=== PATIENT | female | born 1940 | race Caucasian/White ===

== ENCOUNTER 2022-06-16 23:50 | Emergency (ER) | payer BC, OTHER ==
[~2022-06-16] VITALS: Ht 170.2 cm; Wt 90.9 kg
[2022-06-17 00:38] LABS: Basophils # (auto) 0.1 10 ^3/uL (0-0.2); Basophils % (auto) 1.4 % (0.0-2.0); Eosinophils # (auto) 0.2 10 ^3/uL (0-0.8); Eosinophils % (auto) 3.8 % (0.0-7.0); Hematocrit 39.6 % (36.0-46.0); Hemoglobin 12.6 g/dL (12.2-16.2); Lymphocytes # (auto) 2.1 10 ^3/uL (0.4-5.4); Lymphocytes % (auto) 32.4 % (10.0-50.0); Mean Corpuscular Hemoglobin 30.7 pg (28.0-32.0); Mean Corpuscular Hgb Conc. 31.8 g/dL (32.0-36.0); Mean Corpuscular Volume 96.5 fL (80.0-100.0); Monocytes # (auto) 0.6 10 ^3/uL (0-1.3); Neutrophils # (auto) 3.5 10 ^3/uL (1.6-8.6); Neutrophils % (auto) 53.4 % (37.0-80.0); Red Blood Cells 4.11 10^6/uL (4.0-5.20); Red Cell Distribution Width 14.3 % (11.8-14.3); White Blood Cell 6.5 10^3/uL (4.4-10.8)
[2022-06-17 00:53] LABS: INR 0.97 (0.9-1.15); Partial Thromboplastin Time 24.5 sec (24.6-33.4)
[2022-06-17 00:58] LABS: Albumin 3.9 g/dL (3.4-5.0); BUN/Creatinine Ratio 33.9; Calcium 10.7 mg/dL (8.5-10.1); Magnesium 2.3 mg/dL (1.6-2.6); Potassium 4.1 mmol/L (3.5-5.1)
[2022-06-17 01:01] LABS: Bilirubin, Total 0.3 mg/dL (0.2-1.0); Total Protein 7.5 g/dL (6.4-8.2)
[2022-06-17 02:01] VITALS: BP 147/71
== END 2022-06-17 03:07 | disposition home or self-care (01) ==
LOC: EDBD 23:50 → ER 23:50
DX: I48.91 Unspecified atrial fibrillation (principal); I10 Essential (primary) hypertension
CPT/HCPCS: 36415; 71045; 80053; 83735; 83880; 84484; 85025; 85610; 85730; 93005

== ENCOUNTER 2023-08-11 21:42 | Observation (INO) | payer OTHER ==
[~2023-08-11] VITALS: Ht 167.6 cm; Wt 93.2 kg
[2023-08-11] MEDS: dilTIAZem 25 MG/5 ML VIAL IV ONE (22:00)
[2023-08-11 22:22] LABS: Basophils # (auto) 0 10 ^3/uL (0-0.2); Basophils % (auto) 0.4 % (0.0-2.0); Eosinophils # (auto) 0.1 10 ^3/uL (0-0.8); Hematocrit 40.6 % (36.0-46.0); Hemoglobin 13.2 g/dL (12.2-16.2); Lymphocytes # (auto) 2.1 10 ^3/uL (0.4-5.4); Lymphocytes % (auto) 22.1 % (10.0-50.0); Mean Corpuscular Hemoglobin 31.9 pg (28.0-32.0); Mean Corpuscular Hgb Conc. 32.4 g/dL (32.0-36.0); Mean Corpuscular Volume 98.4 fL (80.0-100.0); Monocytes # (auto) 1.7 10 ^3/uL (0-1.3); Monocytes % (auto) 17.7 % (0.0-12.0); Neutrophils # (auto) 5.5 10 ^3/uL (1.6-8.6); Neutrophils % (auto) 58.8 % (37.0-80.0); Red Blood Cells 4.13 10^6/uL (4.0-5.20); Red Cell Distribution Width 13.7 % (11.8-14.3); White Blood Cell 9.4 10^3/uL (4.4-10.8)
[2023-08-11 22:30] VITALS: PULSE 142; RESP 23; O2SAT 96
[2023-08-11 22:38] LABS: Alanine Aminotransferase 28 U/L (7-40); Albumin 4.2 g/dL (3.2-4.8); Alkaline Phosphatase 82 U/L (46-116); Anion Gap 8 (5-15); Aspartate Aminotransferase 27 U/L (13-40); BUN/Creatinine Ratio 31.2 (10.0-20.0); Blood Urea Nitrogen 54 mg/dL (9-23); Carbon Dioxide 24 mmol/L (20-30); Chloride 104 mmol/L (98-107); Glucose 162 mg/dL (74-106); Potassium 3.3 mmol/L (3.5-5.1); Sodium 136 mmol/L (136-145)
[2023-08-11 22:39] LABS: Bilirubin, Total 0.3 mg/dL (0.2-1.0); Total Protein 6.5 g/dL (5.7-8.2)
[2023-08-11 22:48] LABS: INR 1.06 (0.9-1.15); Partial Thromboplastin Time 26.9 SEC (24.5-34.5); Prothrombin Time 11.1 sec (9.3-11.8)
[2023-08-11 22:51] LABS: Urine Bacteria NONE SEEN /hpf (None Seen); Urine Blood Negative /uL (Negative); Urine Clarity Clear (Clear); Urine Color Yellow (Yellow); Urine Hyaline Cast FEW /lpf (0 - 2); Urine Protein, UAD TRACE (Negative); Urine Specific Gravity 1.017 (1.001-1.035); Urine Urobilinogen Normal (Negative); Urine WBC 6 /hpf (0 - 5); Urine pH 5.5 (5.0-8.0)
[2023-08-12] VITALS (7 sets, daily range): BP systolic 101–115; BP diastolic 53–73; PULSE 65–95; RESP 16–19; TEMP 97.8–98.8; O2SAT 96–100
[2023-08-12] MEDS: dilTIAZem 125mg/125ml BAG KIT 125 ML IV ONE (01:03)
[2023-08-12] MEDS: cefTRIAXone 1GM/50ML D5W 50 ML IV ONE (01:11)
[2023-08-12] MEDS: POTASSIUM CHL 20 Meq TABLET PO ONE (01:11)
[2023-08-12] MEDS: dilTIAZem 25 MG/5 ML VIAL IV ONE (01:11)
[2023-08-12] MEDS ORDERED: dilTIAZem 125mg/125ml BAG KIT 100 ML IV SCH (02:15)
[2023-08-12] MEDS ORDERED: NITROGLYCERIN 0.4 MG SL TAB SL PRN (02:30)
[2023-08-12] MEDS ORDERED: hydrALAZINE HCL 20 MG/ML VL IV PRN (02:30)
[2023-08-12] MEDS ORDERED: MORPHINE SULFATE INJ 2 MG/ml SYRG IV PRN (02:30)
[2023-08-12] MEDS ORDERED: DEXTROSE (50%) 50ML SYRG IV PRN (02:30)
[2023-08-12] MEDS: NITROGLYCERIN 0.4 MG SL TAB SL ONE (02:31)
[2023-08-12] MEDS: AMIODARONE BOLUS KIT 100 ML IV ONE (03:00)
[2023-08-12] MEDS: SODIUM CHLORIDE 0.9% 1,000 ML IV SCH (03:00)
[2023-08-12] MEDS: AMIODARONE 450mg/250ml AE 250 ML IV SCH ×2 (04:12→08:11)
[2023-08-12] MEDS: ENOXAPARIN SOD 100 MG/1 ML SYRINGE SC SCH (04:13)
[2023-08-12 06:04] LABS: Basophils # (auto) 0.1 10 ^3/uL (0-0.2); Basophils % (auto) 0.7 % (0.0-2.0); Eosinophils # (auto) 0.1 10 ^3/uL (0-0.8); Hematocrit 38.8 % (36.0-46.0); Hemoglobin 12.6 g/dL (12.2-16.2); Lymphocytes # (auto) 1.2 10 ^3/uL (0.4-5.4); Lymphocytes % (auto) 14.6 % (10.0-50.0); Mean Corpuscular Hemoglobin 32.4 pg (28.0-32.0); Mean Corpuscular Hgb Conc. 32.5 g/dL (32.0-36.0); Mean Corpuscular Volume 99.9 fL (80.0-100.0); Monocytes # (auto) 1.5 10 ^3/uL (0-1.3); Monocytes % (auto) 17.7 % (0.0-12.0); Neutrophils # (auto) 5.5 10 ^3/uL (1.6-8.6); Red Blood Cells 3.89 10^6/uL (4.0-5.20); White Blood Cell 8.3 10^3/uL (4.4-10.8)
[2023-08-12 06:19] LABS: Chloride 106 mmol/L (98-107); Potassium 4.2 mmol/L (3.5-5.1); Sodium 134 mmol/L (136-145)
[2023-08-12 06:20] LABS: Anion Gap 8 (5-15); Calcium 9.4 mg/dL (8.7-10.4); Carbon Dioxide 20 mmol/L (20-30)
[2023-08-12 06:25] LABS: BUN/Creatinine Ratio 46.7 (10.0-20.0); Blood Urea Nitrogen 57 mg/dL (9-23); Glucose 187 mg/dL (74-106)
[2023-08-12] MEDS: METOPROLOL TARTRATE 25 MG TAB PO ONE (07:30)
[2023-08-12] MEDS: SODIUM CHLORIDE 0.9% 500 ML IV ONE (07:30)
[2023-08-12] MEDS: ACCU-CHEK COMFORT CURVE STRIP VI SCH (08:06)
[2023-08-12] MEDS: ASPirin-EC 81 mg tab PO SCH (08:06)
[2023-08-12] MEDS: InsuLIN REG 1unit/0.01ml Soln (100units/ml) SC SCH (08:07)
[2023-08-12] MEDS: LOPERAMIDE HCL 2 MG CAP/TAB PO PRN (11:22)
[2023-08-12] MEDS ORDERED: AMIO200T33 PO (12:51)
[2023-08-12] MEDS ORDERED: APIX5TAB PO (13:12)
[2023-08-12] MEDS: cefTRIAXone 1GM/50ML D5W 50 ML IV SCH (13:41)
[2023-08-12] MEDS: AMIODARONE HCL 200 MG TAB PO SCH (15:32)
[2023-08-12] MEDS ORDERED: cefTRIAXone 1GM/50ML D5W 50 ML IV SCH (21:00)
[2023-08-12] MEDS ORDERED: ATORVASTATIN 20 MG TAB PO SCH (22:00)
== END 2023-08-12 19:28 | disposition home or self-care (01) ==
LOC: ER 21:42 → EDBD 21:42 → TELE 08-12 02:26 → TELE-WESTW 08-12 04:43
PROVIDERS: ADMIT Hospitalist; ATTEND Hospitalist
DX: I48.20 Chronic atrial fibrillation, unspecified (principal); I48.0 Paroxysmal atrial fibrillation; N39.0 Urinary tract infection, site not specified; I10 Essential (primary) hypertension; E11.9 Type 2 diabetes mellitus without complications; E78.5 Hyperlipidemia, unspecified; E86.0 Dehydration; N17.0 Acute kidney failure with tubular necrosis; I25.10 Atherosclerotic heart disease of native coronary artery without angina pectoris; Z90.710 Acquired absence of both cervix and uterus; Z79.899 Other long term (current) drug therapy; Z96.653 Presence of artificial knee joint, bilateral; Z98.61 Coronary angioplasty status
CPT/HCPCS: 36415; 71045; 80048; 80053; 81001; 82962; 83735; 83880; 84484; 85025; 85610; 85730; 93005; 93306; 96365; 96366; 96367; 96368; 96372; 96376; 99291; G0378; J0282; J0696; J1650; J1815

== ENCOUNTER 2024-08-27 10:37 | Emergency (ER) | payer OTHER ==
[~2024-08-27] VITALS: Ht 170.2 cm; Wt 98.6 kg
[~2024-08-27 10:37] MED LIST: AMIO200T33 PO; APIX5TAB PO
--- NOTE | 2024-08-27 10:58 | ECG ---
[facility] Test Date: 2024-08-27 Test Time: 10:56:29 Pat Name: TOY PATEL Department: ER Room: Gender: F Finance Administrator: ROSA M : 1940 Requested By: SOL NASH Order Number: [id number] Reading MD: Georges Don Measurements Intervals Wiley Rate: 74 P: 69 AR: 201 QRS: 67 QRSD: 101 T: 69 QT: 384 QTc: 426 Interpretive Statements Sinus rhythm Borderline low voltage, extremity leads Electronically Signed On 08-30-2024 20:55:39 PDT by Georges Don Please click the below link to view image of tracing.
[2024-08-27 11:23] LABS: Basophils # (auto) 0.1 10 ^3/uL (0-0.2); Basophils % (auto) 1.2 % (0.0-2.0); Eosinophils # (auto) 0.3 10 ^3/uL (0-0.8); Eosinophils % (auto) 4.3 % (0.0-7.0); Hematocrit 40.5 % (36.0-46.0); Hemoglobin 13.5 g/dL (12.2-16.2); Lymphocytes # (auto) 2.3 10 ^3/uL (0.4-5.4); Lymphocytes % (auto) 32.6 % (10.0-50.0); Mean Corpuscular Hemoglobin 33.2 pg (28.0-32.0); Mean Corpuscular Hgb Conc. 33.4 g/dL (32.0-36.0); Mean Corpuscular Volume 99.4 fL (80.0-100.0); Monocytes # (auto) 0.8 10 ^3/uL (0-1.3); Monocytes % (auto) 10.8 % (0.0-12.0); Neutrophils # (auto) 3.6 10 ^3/uL (1.6-8.6); Neutrophils % (auto) 51.1 % (37.0-80.0); Platelet Count (auto) 261 10^3/uL (140-450); Red Blood Cells 4.07 10^6/uL (4.0-5.20); Red Cell Distribution Width 13.1 % (11.8-14.3)
--- NOTE | 2024-08-27 11:24 | ED.PDOC ---
History of Present Illness HPI Comments 84 y/o F presents with c/o chest heaviness, palpitations and HTN, today. Patient endorses on sudden and unprovoked onset of symptoms, this morning, at 0730. She reports on having palpitations, initially, after returning from using her bathroom and then checking her blood pressure afterwards and noticing it being elevated. Patient admits to taking 1x dose of her 50mg Metoprolol prior to ED arrival. Patient reports a history of AFIB, AK, 1x PTCA, baby ASA use, CAD, DM II, HLD, HTN, rheumatoid arthritis, and chronic back pain syndrome. She further comments on having diarrhea, earlier, this week, that has since subsided following antidiarrheal medication use, with some residual constipation up until, yesterday, in addition to an isolated episode of feeling weak, while walking with her son outside, yesterday. Patient also mentions on running out of her amiodarone for the past 2 months and is awaiting a electrical checkout mechanic consult to railroad design consultant further refills, currently. She denies any shortness of breath, nausea, vomiting, weakness, fever, chills, or other associated symptoms at this time. Chief Complaint: Palpitations Time Seen by MD: 11:00 Primary Care Provider: JUAN Amaral Notes: Nurses Notes, Medications, Allergies Allergies: Coded Allergies: NO KNOWN ALLERGIES (Unverified , 06/17/22) Home Meds Active Scripts Apixaban Base (ELIQUIS) 5 Mg Tab, 5 MG PO BID, #60 TAB Prov:RUKHSANA LUTHER MD 08/12/23 Amiodarone Hcl (Amiodarone Hcl) 200 Mg Tab, 200 MG PO BID, #60 TAB Prov:RUKHSAAN LUTHER MD 08/12/23 Information Source: Patient Mode of Arrival: Wheelchair Severity: Moderate Timing: Hours Duration: Since onset Prehospital treatment: Other (Metoprolol) Past Medical History PAST MEDICAL HISTORY: AFIB (paroxysmal ), Arthritis (rheumatoid arthritis ), CAD, DM (type II ), High Lipids, HTN Past Medical History (Other): chronic back pain Surgical History: Cholecystectomy, Hysterectomy, PTCA (1x) Surgical History (Other): coronary angioplasty POSTAGE MACHINE OPERATOR History: Denies all POSTAGE MACHINE OPERATOR Hx Family History Family History: Reviewed,noncontributory to illness Social History Smoker: Non-Smoker Alcohol: Denies ETOH Use Drugs: Denies Drug Use Lives In: Home All Other Systems: Reviewed and Negative (Comprehensive systems review obtained and negative except for what is stated in the HPI.) Physical Exam General Appearance: No Apparent Distress, Normal HEENT: Normal ENT Inspection, Pharynx Normal, TMs Normal Neck: Full Range of Motion, Non-Tender, Normal, Normal Inspection Respiratory: Chest Non-Tender, Lungs Clear, No Accessory Muscle Use, No Respiratory Distress, Normal Breath Sounds Cardiovascular: No Edema, No Murmur, No Gallop, Normal Peripheral Pulses, Regular Rate/Rhythm, Other (Not in AFib at time my evaluation) Breast Exam: Deferred Gastrointestinal: No Organomegaly, Non Tender, No Pulsatile Mass, Normal Bowel Sounds, Soft Genitalia: Deferred Pelvic: Deferred Rectal: Deferred Extremities: No calf tenderness, Normal capillary refill, Normal inspection, Normal range of motion, Non-tender, No pedal edema Musculoskeletal : Apperance: Normal Neurologic: Alert, ward supervisor II-XII nml as Tested, No Motor Deficits, Normal Affect, Normal Mood, No Sensory Deficits Cerebellar Function: Normal Reflexes: Normal Skin: Dry, Normal Color, Warm Lymphatic: No Adenopathy Was a procedure done? Was a procedure done?: No EKG EKG : Pulse Rate (adult): 74 [place]: Normal Cardiac Rhythm: NSR Block: None Hypertrophy: None ST: Normal Differential Dx Considerations may include: Arrhythmia, anxiety, AK, PE, ACS, electrolyte imbalance, viral syndrome, among others X-Ray, Labs, Meds, VS Vital Signs Date Time Temp Pulse Resp B/P (MAP) Pulse Ox O2 Delivery O2 Flow Rate FiO2 08/27/24 11:50 74 08/27/24 10:56 74 08/27/24 10:37 98.0 90 15 91/61 (71) 98 98.0 Lab Test 08/27/24 11:50 08/27/24 11:00 Range/Units Troponin I High Sensitivity 6 7 </=34 ng/L White Blood Count 7.0 4.4-10.8 10^3/uL Red Blood Count 4.07 4.0-5.20 10^6/uL Hemoglobin 13.5 12.2-16.2 g/dL Hematocrit 40.5 36.0-46.0 % Mean Corpuscular Volume 99.4 80.0-100.0 fL Mean Corpuscular Hemoglobin 33.2 H 28.0-32.0 pg Mean Corpuscular Hemoglobin Concent 33.4 32.0-36.0 g/dL Red Cell Distribution Width 13.1 11.8-14.3 % Platelet Count 261 140-450 10^3/uL Mean Platelet Volume 8.6 6.9-10.8 fL Neutrophils (%) (Auto) 51.1 37.0-80.0 % Lymphocytes (%) (Auto) 32.6 10.0-50.0 % Monocytes (%) (Auto) 10.8 0.0-12.0 % Eosinophils (%) (Auto) 4.3 0.0-7.0 % Basophils (%) (Auto) 1.2 0.0-2.0 % Neutrophils # (Auto) 3.6 1.6-8.6 10 ^3/uL Lymphocytes # (Auto) 2.3 0.4-5.4 10 ^3/uL Monocytes # (Auto) 0.8 0-1.3 10 ^3/uL Eosinophils # (Auto) 0.3 0-0.8 10 ^3/uL Basophils # (Auto) 0.1 0-0.2 10 ^3/uL Nucleated Red Blood Cells 0.0 % Sodium Level 142 136-145 mmol/L Potassium Level 4.6 3.5-5.1 mmol/L Chloride Level 110 H 98-107 mmol/L Carbon Dioxide Level 24 20-31 mmol/L Anion Gap 8 5-15 Blood Urea Nitrogen 52 H 9-23 mg/dL Creatinine 1.46 H 0.550-1.02 mg/dL Glomerular Filtration Rate Calc 35 >90 mL/min BUN/Creatinine Ratio 35.6 H 10.0-20.0 Serum Glucose 152 H 74-106 mg/dL Calcium Level 11.4 H 8.7-10.4 mg/dL Phosphorus Level 3.7 2.4-5.1 mg/dL Magnesium Level 2.1 1.6-2.6 mg/dL B-Type Natriuretic Peptide 67.24 0-100 pg/mL Lipase 56 H 12-53 U/L Thyroid Stimulating Hormone (TSH) 17.30 H 0.55-4.78 uIU/mL [facility] [id number] [place] [id number] Ph: [phone] DIAGNOSTIC IMAGING Diagnostic Imaging Report : [id number] Signed PATIENT: TOY PATEL ACCT: [id number] UNIT: [id number] : 1940 LOC: ER ROOM / BED: / AGE / SEX: 84 / F ADM STATUS: REG ER SERVICE 1107 ORDERING PHYSICIAN: KAY PALACIOS MD PROCEDURE(s): CXR1 - CHEST XRAY 1 VIEW REASON: palptations ORDER NUMBER(s): [id number], ACCESSION NUMBER(s): [id number] EXAM: XR Chest, 1 View CLINICAL INDICATION: palptations TECHNIQUE: Frontal view of the chest. COMPARISON: XY CHEST PORTABLE on DOS: 08/11/23, CXRP on DOS: 06/17/22, CHEST PORTABLE on DOS: 06/17/22 FINDINGS: LUNGS AND PLEURAL SPACES: Unremarkable. No consolidation. No pneumothorax. HEART: Unremarkable. No cardiomegaly. MEDIASTINUM: Unremarkable. Normal mediastinal contour. BONES/JOINTS: Unremarkable. No acute fracture. OTHER FINDINGS: . None. IMPRESSION: No acute cardiopulmonary process. ATED BY: SHERRELL BROUSSARD MD DICTATED DATE/TIME: 08/27/24 1132 SIGNED BY: SHERRELL BROUSSARD MD SIGNED DATE/TIME: 08/27/24 1132 CC: X-Ray, Labs, Meds, VS Comment 84-year-old female with a history of AFib, has not taken her amiodarone in months here today with complaints of suspected episode of AFib with RVR this morning that resolved after taking her son's metoprolol. Patient also complaining of some chest pressure but otherwise no significant complaints as above. Vital signs stable, afebrile. Physical exam notable for patient being in sinus rhythm at time my evaluation. Labs with evidence of HAROLDO versus CKD and elevated TSH concerning for possible hypothyroidism. Plan made to admit the patient to the hospital for further cardiac risk stratification and for re-initiation of medication for her AFib and consideration of starting her on blood thinners. 1306: I discussed the case extensively by phone with Dr. Gonzalez from [facility] for admission. Time of 1ST Reevaluation: 11:00 Reevaluation 1ST: Improved Patient Education/Counseling: Diagnosis, Treatment Family Education/Counseling: No Family Present Additional Information Previous medical encounters reviewed: June 16, 2022 and August 12, 2023 encounter for AFIB The following tests were ordered, and results were reviewed by me: CXR, EKG, troponin, CBC, BMP, BNP, lipase, magnesium, phosphorus, and TSH levels Additional Information was gathered from interviewing the following independent historians: N/A I reviewed and agreed with the following test results read by other providers: CXR I discussed treatment and results with medical personnel and: Patient Departure 1 Departure Time of Disposition: 13:48 Impression: Primary Impression: Chest pain Additional Impressions: Atrial fibrillation HAROLDO (acute kidney injury) Disposition: 02 SHORT TERM HOSPITAL Admit to: Tele Condition: Stable Critical Care Note Critical Care Time?: No Stability Stability form required: No Heart Score Heart Score: Heart Score Response (Comments) Value History Moderate Suspicious 1 EKG Normal 0 Age >65 2 Risk Factors >3 or Hx ASHD 2 Troponin Normal limit 0 Total 5 I personally scribed for KAY PALACIOS MD ([email or web address]) on 08/27/24 at 11:24. Electronically submitted by Joselito Scales ([email or web address]). I personally scribed for KAY PALACIOS MD ([email or web address]) on 08/27/24 at 11:34. Electronically submitted by Joselito Scales ([email or web address]). I personally scribed for KAY PALACIOS MD ([email or web address]) on 08/27/24 at 11:50. Electronically submitted by Joselito Scales ([email or web address]). KAY PALACIOS MD Aug 27, 2024 11:24
[2024-08-27 11:28] LABS: Potassium 4.6 mmol/L (3.5-5.1); Sodium 142 mmol/L (136-145)
[2024-08-27 11:29] LABS: Anion Gap 8 (5-15); Carbon Dioxide 24 mmol/L (20-31)
[2024-08-27 11:34] LABS: Magnesium 2.1 mg/dL (1.6-2.6)
--- NOTE | 2024-08-27 11:34 | DVH ---
EXAM: XR Chest, 1 View CLINICAL INDICATION: palptations TECHNIQUE: Frontal view of the chest. COMPARISON: XY CHEST PORTABLE on DOS: 08/11/23, CXRP on DOS: 06/17/22, CHEST PORTABLE on DOS: 06/17/22 FINDINGS: LUNGS AND PLEURAL SPACES: Unremarkable. No consolidation. No pneumothorax. HEART: Unremarkable. No cardiomegaly. MEDIASTINUM: Unremarkable. Normal mediastinal contour. BONES/JOINTS: Unremarkable. No acute fracture. OTHER FINDINGS: . None. IMPRESSION: No acute cardiopulmonary process.
[2024-08-27 11:35] LABS: BUN/Creatinine Ratio 35.6 (10.0-20.0)
[2024-08-27 11:37] LABS: Phosphorus 3.7 mg/dL (2.4-5.1)
[2024-08-27 11:51] LABS: Blood Urea Nitrogen 52 mg/dL (9-23); Calcium 11.4 mg/dL (8.7-10.4); Chloride 110 mmol/L (98-107); Glucose 152 mg/dL (74-106)
--- NOTE | 2024-08-27 14:43 | DVHDS2 ---
Physician Discharge Progress N Final Diagnosis: Palpitations, hypothyroidism uncontrolled Operations or Procedures: Operations or Procedures none Other Interventions Other Interventions lab results, EKG, CXR Consultations: Consultations none Commentary: Commentary 84 y.o. female with CAD, HTN, paroxysmal Afib, RA and hypothyroidism was brought to the ER c/o palpitations, feeling tired, weak. Patient denies CP and SOB at this time. Her lab results including troponin were normal except TSH that was 14.7. When she was told that he TSH was elevated, patient was surprised and stated that she had that problem in the past but she had been taking medication and did not think it was uncontrolled. Patient did not remember the dose and informed that she forgot to take one in the morning. She was given 50mcg Levothyroxine in the ER. Patient stated that she has never been seen by an director quality systems in the past and has not seen her flower grader for about a year. Patient had EKG with NSR, HR of 70, stable blood pressure and was discharged home to f/u with her flower grader and director quality systems next week. [facility] will be scheduling the appointments tomorrow.She agreed . Condition on Discharge: Stable Disposition: Home Discharge Instructions: Diet: Cardiac 2g Na,low cholest Activity: No Restrictions, As Tolerated Follow Up/Referral: Bingo Manager and Ground Host/Hostess appointments will be scheduled tomorrow by [facility] lpn or medical assistant. Patient will be notified by [facility] Medications: Continue home medications Follow Up Care: Discharge Statement: "Patient was advised to return to the ER or call 911 if any headaches, dizziness, shortness of breath, chest pain, abdominal pain, bleeding, fevers, or worsening of medical condition. Patient was counseled about treatment plan, medications, possible side effects, patientverbalized understanding. All questions were answered to the best of my ability. This discharge took greater then 30 minutes in planning, reviewing documentation, counseling the patient, and discussing with other team members." EMELY PARADA MD Aug 27, 2024 14:43
[2024-08-27] MEDS: SOD CHL 0.45% 1,000 ML IV ONE (17:08)
[2024-08-27] MEDS: LEVOTHYROXINE SODIUM 50 MCG TAB PO ONE (17:12)
[2024-08-27 19:14] VITALS: BP 122/75; PULSE 60; RESP 18; TEMP 98.3; O2SAT 100
== END 2024-08-27 19:21 | disposition home or self-care (01) ==
LOC: ER 10:37
DX: R07.89 Other chest pain (principal); I48.0 Paroxysmal atrial fibrillation; N17.9 Acute kidney failure, unspecified; I10 Essential (primary) hypertension; E11.9 Type 2 diabetes mellitus without complications; E78.5 Hyperlipidemia, unspecified; I25.10 Atherosclerotic heart disease of native coronary artery without angina pectoris; M06.9 Rheumatoid arthritis, unspecified; Z79.01 Long term (current) use of anticoagulants; Z90.49 Acquired absence of other specified parts of digestive tract; Z90.710 Acquired absence of both cervix and uterus; Z98.890 Other specified postprocedural states; Z79.899 Other long term (current) drug therapy
CPT/HCPCS: 36415; 71045; 80048; 83690; 83735; 83880; 84100; 84443; 84484; 85025; 93005; 96360; 99285; J7030